=== PATIENT | female | born 1965 | race Caucasian/White ===

== ENCOUNTER 2019-12-23 04:52 | Emergency (ER) | payer BC ==
[2019-12-23] MEDS ORDERED: ONDANSETRON 4 MG/2 ML VIAL ONE (05:35)
[2019-12-23] MEDS ORDERED: MORPHINE 4 MG/ML SYR ONE (05:35)
[2019-12-23 05:42] LABS: Absolute Lymphocytes (CBC) 1.2 K/uL (0.7-4.9); Basophils % 0.6 % (0-1.3); Hematocrit 39.8 % (36.0-45.0); Lymphocytes % 15.6 % (15.3-44.8); MPV 9.7 fL (7.6-11.3); RBC Red Blood Cell Count 4.69 M/uL (3.86-4.86)
[2019-12-23 05:47] LABS: Protime INR 1.03
[2019-12-23 06:00] LABS: ALT/SGPT 22 U/L (12-78); AST/SGOT 17 U/L (15-37); Albumin 3.8 g/dL (3.4-5.0); Alkaline Phosphatase 80 U/L (45-117); BUN Blood Urea Nitrogen 15 mg/dL (7-18); Bicarbonate 27 mmol/L (21-32); Bilirubin Direct < 0.1 mg/dL (0-0.2); Bilirubin Total 0.4 mg/dL (0.2-1.0); Creatine Phosphokinase 68 U/L (26-192); Glucose Level 141 mg/dL (74-106); Lipase 73 U/L (73-393); NT PRO-BNP 80 pg/mL (<125); Potassium 4.1 mmol/L (3.5-5.1); Sodium Level 140 mmol/L (136-145); Troponin (Emerg Dept Use Only) < 0.02 ng/mL (0.0-0.045)
[2019-12-23 07:59] LABS: Urine Blood NEGATIVE (NEG); Urine Glucose NEGATIVE (NEG); Urine Protein NEGATIVE (NEG); Urine Specific Gravity 1.015 (1.005-1.030); Urine pH 7.5 (5.0-7.0)
--- NOTE | 2019-12-23 08:05 | EDPHYS ---
Physician Documentation [facility] Name: Nicole Marie Age: 54 yrs Sex: Female : 1965 Arrival Date: 12/23/2019 Time: 04:54 Bed 20 Private MD: ED Physician Kingsley Max HPI: 12/22 05:26 This 54 yrs old Female presents to ER via Ambulatory with complaints of Back mh7 Pain, Nausea/Vomiting. 05:26 The patient presents with pain that is acute, with no known mechanism of injury. The mh7 symptoms are located in the right subscapular area and right mid back. Onset: The symptoms/episode began/occurred last night, at 22:00. The pain does not radiate. Associated signs and symptoms: Pertinent positives: nausea, vomiting. 05:27 Associated signs and symptoms: Pertinent positives: Pertinent negatives: abdominal mh7 pain, chest pain, constipation, dysuria, fever, headache, hematuria, incontinence, numbness, tingling, urinary retention, weakness. The problem was sustained from unknown cause. Modifying factors: The patient symptoms are alleviated by nothing, the patient symptoms are aggravated by nothing. Severity of symptoms: At their worst the symptoms were moderate, last night, in the emergency department the symptoms are unchanged. 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 - Social history:: Smoking status: Patient denies any tobacco usage or history of. Patient uses alcohol, occasionally. Patient/guardian denies using street drugs. ROS: 05:27 Constitutional: Negative for fever, chills, and weight loss, Eyes: Negative for injury, mh7 pain, redness, and discharge, ENT: Negative for injury, pain, and discharge, Neck: Negative for injury, pain, and swelling, Cardiovascular: Negative for chest pain, palpitations, and edema, Respiratory: Negative for shortness of breath, cough, wheezing, and pleuritic chest pain, : Negative for injury, bleeding, discharge, and swelling, MS/Extremity: Negative for injury and deformity, Skin: Negative for injury, rash, and discoloration, Neuro: Negative for headache, weakness, numbness, tingling, and seizure, Psych: Negative for depression, anxiety, suicide ideation, homicidal ideation, and hallucinations, Allergy/Immunology: Negative for hives, rash, and allergies, Endocrine: Negative for neck swelling, polydipsia, polyuria, polyphagia, and marked weight changes, Hematologic/Lymphatic: Negative for swollen nodes, abnormal bleeding, and unusual bruising. Exam: 05:27 Head/Face: Normocephalic, atraumatic. Eyes: Pupils equal round and reactive to light, mh7 extra-ocular motions intact. Lids and lashes normal. Conjunctiva and sclera are non-icteric and not injected. Cornea within normal limits. Periorbital areas with no swelling, redness, or edema. Neck: Trachea midline, no thyromegaly or masses palpated, and no cervical lymphadenopathy. Supple, full range of motion without nuchal rigidity, or vertebral point tenderness. No Meningismus. Chest/axilla: Normal chest wall appearance and motion. Nontender with no deformity. No lesions are appreciated. Cardiovascular: Regular rate and rhythm with a normal S1 and S2. No gallops, murmurs, or rubs. Normal PMI, no JVD. No pulse deficits. Respiratory: Lungs have equal breath sounds bilaterally, clear to auscultation and percussion. No rales, rhonchi or wheezes noted. No increased work of breathing, no retractions or nasal flaring. Abdomen/GI: Soft, non-tender, with normal bowel sounds. No distension or tympany. No guarding or rebound. No evidence of tenderness throughout. Back: No spinal tenderness. No costovertebral tenderness. Full range of motion. Skin: Warm, dry with normal turgor. Normal color with no rashes, no lesions, and no evidence of cellulitis. MS/ Extremity: Pulses equal, no cyanosis. Neurovascular intact. Full, normal range of motion. Neuro: Awake and alert, GCS 15, oriented to person, place, time, and situation. Cranial nerves II-XII grossly intact. Motor strength 5/5 in all extremities. Sensory grossly intact. Cerebellar exam normal. Normal gait. Psych: Awake, alert, with orientation to person, place and time. Behavior, mood, and affect are within normal limits. 05:27 Constitutional: The patient appears in no acute distress, alert, awake, uncomfortable. 08:03 Abdomen/GI: Palpation: abdomen is soft and non-tender, in all quadrants, mass, is not pm1 appreciated. 08:03 Back: pain, is absent, ROM is normal, normal spinal alignment noted, CVA tenderness, is absent, vertebral tenderness, is not appreciated. Vital Signs: 05:04 BP 146 / 79; Pulse 69; Resp 16 S; Temp 97.9(O); Pulse Ox 100% on R/A; Weight 102.06 kg bb (R); Height 5 ft. 7 in. (170.18 cm) (R); Pain 10/10; 06:17 BP 143 / 82; Pulse 61; Resp 20 S; Pulse Ox 97% on R/A; Pain 3/10; bb 07:00 BP 138 / 71; Pulse 62; Resp 17; Pulse Ox 96% ; Pain 6/10; jl7 08:00 BP 143 / 86; Pulse 63; Resp 15; Pulse Ox 98% ; Pain 8/10; jl7 05:04 Body Mass Index 35.24 (102.06 kg, 170.18 cm) bb MDM: 05:16 Patient medically screened. 7 08:03 Data reviewed: vital signs. Data interpreted: Pulse oximetry: on room air is 96 %. pm1 Interpretation: normal. Counseling: I had a detailed discussion with the patient and/or guardian regarding: the historical points, exam findings, and any diagnostic results supporting the discharge/admit diagnosis, lab results, radiology results, the need for outpatient follow up, for definitive care, a general surgeon, to return to the emergency department if symptoms worsen or persist or if there are any questions or concerns that arise at home. 12:49 ED course: PMPaware reviewed. pm1 12/22 05:18 Order name: Basic Metabolic Panel; Complete Time: 06:05 [facility] 12/22 05:18 Order name: CBC with Diff; Complete Time: 06:05 [facility] 12/22 05:18 Order name: LFT's; Complete Time: 06:05 [facility] 12/22 05:18 Order name: Magnesium; Complete Time: 06:05 [facility] 12/22 05:18 Order name: NT PRO-BNP; Complete Time: 06:05 [facility] 12/22 05:18 Order name: PT-INR; Complete Time: 06:05 [facility] 12/22 05:18 Order name: Troponin (emerg Dept Use Only); Complete Time: 06:05 [facility] 12/22 05:18 Order name: XRAY Chest (1 view) [facility] 12/22 05:18 Order name: Lipase; Complete Time: 06:05 [facility] 12/22 05:25 Order name: Creatine Phosphokinase [facility] 12/22 05:45 Order name: Creatine Phosphokinase; Complete Time: 06:05 [facility] 12/22 06:07 Order name: CT Chest For PE Angio [facility] 12/22 07:18 Order name: Urine Dipstick--Ancillary (enter results); Complete Time: 08:07 12/22 05:18 Order name: EKG; Complete Time: 05:19 [facility] 12/22 05:18 Order name: Cardiac monitoring; Complete Time: 05:41 [facility] 12/22 05:18 Order name: EKG - Nurse/Tech; Complete Time: 05:40 [facility] 12/22 05:18 Order name: IV Saline Lock; Complete Time: 05:40 [facility] 12/22 05:18 Order name: Labs collected and sent; Complete Time: 05:40 [facility] 12/22 05:18 Order name: O2 Per Protocol; Complete Time: 05:40 [facility] 12/22 05:18 Order name: O2 Sat Monitoring; Complete Time: 05:40 [facility] Administered Medications: 03:00 Drug: Zofran (Ondansetron) 4 mg Route: IVP; Site: right antecubital; bb 05:54 Follow up: Response: No adverse reaction bb 05:35 Drug: morphine 4 mg Route: IVP; Site: right antecubital; bb 05:54 Follow up: Response: Pain is decreased bb 08:17 Drug: Bentyl 20 mg Route: PO; jl7 08:18 Follow up: Response: Medication administered at discharge. jl7 08:18 Drug: [place] 10 mg-325 mg 1 tabs Route: PO; jl7 08:18 Follow up: Response: Medication administered at discharge. jl7 Disposition: 12/23/19 08:04 Discharged to Home. Impression: Cholelithiasis. - Condition is Stable. - Discharge Instructions: Cholelithiasis. - Prescriptions for Bentyl 20 mg Oral Tablet - take 1 tablet by ORAL route every 6 hours As needed; 20 tablet. Tylenol- Codeine #3 300-30 mg Oral Tablet - take 2 tablets by ORAL route every 6 hours As needed; 20 tablet. Zofran 4 mg Oral Tablet - take 1 tablet by ORAL route every 8 hours As needed; 20 tablet. - Medication Reconciliation Form, Thank You Letter, Antibiotic Education, Prescription Opioid Use form. - Follow up: Emergency Department; When: As needed; Reason: Worsening of condition. Follow up: Private Physician; When: 2 - 3 days; Reason: Recheck today's complaints, Continuance of care, Re-evaluation by your physician. - Problem is new. - Symptoms have improved. Addendum: 12/28/2019 06:48 Co-signature as Attending Physician, Kingsley Max MD. [facility] Signatures: Dispatcher [employer] EDNM Ness Walden RN RN bb Ar Fletcher, INTERNATIONAL ACCOUNT REPRESENTATIVE INTERNATIONAL ACCOUNT REPRESENTATIVE pm1 Toshia Durand RN RN jl7 Kingsley Max MD MD 7 Corrections: (The following items were deleted from the chart) 12/22 05:21 05:19 Urine Test ordered. [facility] 05:45 05:25 Creatine Phosphokinase ordered. EDNM EDNM 08:19 08:04 12/23/2019 08:04 Discharged to Home. Impression: Cholelithiasis. Condition is jl7 Stable. Forms are Medication Reconciliation Form, Thank You Letter, Antibiotic Education, Prescription Opioid Use. Follow up: Emergency Department; When: As needed; Reason: Worsening of condition. Follow up: Private Physician; When: 2 - 3 days; Reason: Recheck today's complaints, Continuance of care, Re-evaluation by your physician. Problem is new. Symptoms have improved. pm1
--- NOTE | 2019-12-23 08:05 | ER ---
Nurse's Notes [facility] Name: Nicole Marie Age: 54 yrs Sex: Female : 1965 Arrival Date: 12/23/2019 Time: 04:54 Bed 20 Private MD: Diagnosis: Cholelithiasis Presentation: 12/22 05:04 Chief complaint: Patient states: she started having right sided back pain mid-back bb since yesterday evening she vomited x 2 from the pain and now also has rib pain after vomiting. Coronavirus screen: At this time, the client does not indicate any symptoms associated with coronavirus-19. Ebola Screen: No symptoms or risks identified at this time. Initial Sepsis Screen: Does the patient meet any 2 criteria? No. Patient's initial sepsis screen is negative. Does the patient have a suspected source of infection? No. Patient's initial sepsis screen is negative. Risk Assessment: Do you want to hurt yourself or someone else? Patient reports no desire to harm self or others. Onset of symptoms was December 22, 2019. 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 - Social history:: Smoking status: Patient denies any tobacco usage or history of. Patient uses alcohol, occasionally. Patient/guardian denies using street drugs. Screenin:30 Abuse screen: Denies threats or abuse. Nutritional screening: No deficits noted. bb Tuberculosis screening: No symptoms or risk factors identified. Fall Risk None identified. Assessment: 05:30 General: Appears in no apparent distress. uncomfortable, Behavior is calm, cooperative. bb Pain: Complains of pain in right mid back Pain currently is 8 out of 10 on a pain scale. Pain: Is continuous. Neuro: Level of Consciousness is awake, alert, obeys commands, Oriented to person, place, time, situation. Cardiovascular: Heart tones present Capillary refill < 3 seconds Patient's skin is warm and dry. Respiratory: Airway is patent Respiratory effort is even, unlabored, Respiratory pattern is regular, symmetrical. GI: No deficits noted. No signs and/or symptoms were reported involving the gastrointestinal system. Derm: Skin is pink, warm \\T\\ dry. Musculoskeletal: Circulation, motion, and sensation intact. Reports pain in right mid back and right subscapular area. 05:59 Reassessment: pt states pain has decreased after administration of morphine. bb 06:17 Reassessment: Patient is alert, oriented x 3, equal unlabored respirations, skin bb warm/dry/pink. pt to CT scan via stretcher with cardiac monitor technician Patient states feeling better. 06:54 Reassessment: Patient is alert, oriented x 3, equal unlabored respirations, skin bb warm/dry/pink. pt awaiting results of CT scan, no complaints at this time. 07:00 Reassessment: Pt reports decreased pain, rated 6/10 at this time. Pt's son at bedside. [facility] 07:57 Reassessment: ERP at bedside discussing results and POC. 7 Vital Signs: 05:04 BP 146 / 79; Pulse 69; Resp 16 S; Temp 97.9(O); Pulse Ox 100% on R/A; Weight 102.06 kg bb (R); Height 5 ft. 7 in. (170.18 cm) (R); Pain 10/10; 06:17 BP 143 / 82; Pulse 61; Resp 20 S; Pulse Ox 97% on R/A; Pain 3/10; bb 07:00 BP 138 / 71; Pulse 62; Resp 17; Pulse Ox 96% ; Pain 6/10; jl7 08:00 BP 143 / 86; Pulse 63; Resp 15; Pulse Ox 98% ; Pain 8/10; jl7 05:04 Body Mass Index 35.24 (102.06 kg, 170.18 cm) bb ED Course: 04:54 Patient arrived in ED. am2 05:07 Triage completed. bb 05:07 Kingsley Max MD is Attending Physician. 7 05:10 Arm band placed on Patient placed in an exam room, on a stretcher, on pulse oximetry. bb 05:29 XRAY Chest (1 view) In Process Unspecified. EDMS 05:30 Patient has correct armband on for positive identification. Bed in low position. Call bb light in reach. Side rails up X 1. web production manager on. Pulse ox on. NIBP on. pt refused blanket states she is having a "hot flash". 05:30 Initial lab(s) drawn, by me, sent to lab. Inserted saline lock: 20 gauge in right bb antecubital area, using aseptic technique. Blood collected. 05:36 EKG done, by ED staff. tt3 05:44 Ness Walden RN is Primary Nurse. bb 06:18 IV is patent, is intact, with good blood return. bb 06:41 CT Chest For PE Angio In Process Unspecified. EDMS 07:05 rA Fletcher NP is PHCP. pm1 07:59 Primary Nurse role handed off by Ness Walden RN jl7 07:59 Toshia Durand RN is Primary Nurse. jl7 08:19 No provider procedures requiring assistance completed. IV discontinued, intact, jl7 bleeding controlled, No redness/swelling at site. Pressure dressing applied. Administered Medications: 03:00 Drug: Zofran (Ondansetron) 4 mg Route: IVP; Site: right antecubital; bb 05:54 Follow up: Response: No adverse reaction bb 05:35 Drug: morphine 4 mg Route: IVP; Site: right antecubital; bb 05:54 Follow up: Response: Pain is decreased bb 08:17 Drug: Bentyl 20 mg Route: PO; jl7 08:18 Follow up: Response: Medication administered at discharge. jl7 08:18 Drug: [place] 10 mg-325 mg 1 tabs Route: PO; jl7 08:18 Follow up: Response: Medication administered at discharge. jl7 Outcome: 08:04 Discharge ordered by . pm1 08:19 Discharged to home ambulatory. jl7 08:19 Condition: stable 08:19 Discharge instructions given to patient, Instructed on discharge instructions, follow up and referral plans. medication usage, Demonstrated understanding of instructions, follow-up care, medications, Prescriptions given X 3. 08:19 Patient left the ED. jl7 Signatures: Dispatcher [employer] EDMS Ness Walden RN RN bb Ar Fletcher, MANAGER CASINO MANAGER CASINO pm1 Toshia Durand RN RN jl7 Nancy Christy 2 Kingsley Max MD MD 7 David Stephens tt3
[2019-12-23] MEDS ORDERED: HYDROCODONE/APAP 10/325 TAB ONE (08:18)
[2019-12-23] MEDS ORDERED: DICYCLOMINE HCL 10 MG CAP ONE (08:18)
[2019-12-23 08:24] VITALS: TEMP 97.9
--- NOTE | 2019-12-23 08:27 | RAD REPORT ---
EXAM DESCRIPTION: CT - Chest For Pe Angio - 12/23/2019 6:41 am CLINICAL HISTORY: Chest pain. Rib Pain - Right;PE COMPARISON: Chest For Pe Angio dated 02/09/2016 TECHNIQUE: CT angiogram of the pulmonary arteries was performed with MIP. All CT scans are performed using dose optimization technique as appropriate and may include automated exposure control or mA/KV adjustment according to patient size. FINDINGS: No evidence of pulmonary thromboembolism. No acute aortic finding demonstrated. Mild COPD. No significant pericardial or pleural fluid. No concerning bony finding. Cholelithiasis. IMPRESSION: No evidence of pulmonary thromboembolism. Mild COPD. Cholelithiasis.
[2019-12-23 08:29] VITALS: BP 143/86; O2SAT 98
--- NOTE | 2019-12-23 08:33 | RAD REPORT ---
EXAM DESCRIPTION: RAD - Chest Single View - 12/23/2019 5:29 am CLINICAL HISTORY: right upper back pain;Rib Pain - Right Chest pain. COMPARISON: Chest Single View dated 02/12/2016; Chest Single View dated 02/09/2016; Chest For Pe Shelley o dated 12/23/2019 FINDINGS: Portable technique limits examination quality. The lungs are grossly clear. The heart is normal in size. No displaced fractures. IMPRESSION: No acute intrathoracic process suspected.
== END 2019-12-23 08:19 | disposition home or self-care (01) ==
LOC: ER 04:52
DX: K80.20 Calculus of gallbladder without cholecystitis without obstruction (principal)
CPT/HCPCS: 93005; 85025; 80048; 36415; 83735; 82550; 85610; 80076; 81003; 84484; 83690; 83880; 71275; 71045; 96375; 96374; 99285; Q9967; J2405

== ENCOUNTER 2020-01-03 10:23 | Observation (INO) | payer BC ==
[2020-01-03] MEDS ORDERED: CEFOXITIN/SWI 1gm 1 GM/10 ML SYR ONE (11:00)
[2020-01-03] MEDS ORDERED: Ringers Lactate 1,000 ML IV ONE (11:00)
[2020-01-03] MEDS ORDERED: MIDAZOLAM HCL 2 MG/2 ML INJ ONE (12:34)
[2020-01-03] MEDS ORDERED: LIDOCAINE 2% MPF 5 ML VIAL ONE (12:34)
[2020-01-03] MEDS ORDERED: KETOROLAC 30 MG/ML INJ ONE (12:34)
[2020-01-03] MEDS ORDERED: FENTANYL CITR 100 MCG/2 ML ONE (12:34)
[2020-01-03] MEDS ORDERED: dexAMETHasone 10 MG/ML VIAL ONE (12:34)
[2020-01-03] MEDS ORDERED: propofoL 200 MG/20 ML VIAL IV ONE (12:34)
[2020-01-03] MEDS ORDERED: ONDANSETRON 4 MG/2 ML VIAL ONE (12:36)
[2020-01-03] MEDS ORDERED: ROCURONIUM 50 MG/5 ML VIAL IV ONE (12:39)
--- NOTE | 2020-01-03 12:53 | P.HP ---
Date of Service: 01/03/20 PC: This 54-year-old female presents for elective laparoscopic cholecystectomy and cholangiogram. HPC: Patient has been experiencing right upper quadrant abdominal pain kind radiating into her back, for the last few weeks. On workup was found have chronic cholecystitis with cholelithiasis. Pain has been intensifying born in frequency and intensity. PMH: HIV PSHx: Negative SOC: No known allergies, SYS REVIEW: No cough, wheeze, shortness of breath. No chest pain or palpitations. No urinary complaints. States she has a relatively good health, has good exercise tolerance. O/E awake alert mildly uncomfortable today vital signs stable HEENT: Non icteric Chest: Air entry equal bilateral ABD: Mild right upper quadrant tenderness LOCO: Intact DATA: Has documented cholecystitis IMPRESSION: Cholecystitis PLAN: I will take her the operating room for laparoscopic possible open cholecystectomy with cholangiogram. The risks of this procedure have been discussed. The possibility of bleeding, infection, injury to bile ducts blood vessels and intestines has been described. The possible need for an open and/or further surgeries and procedures was discussed. She understands and wants us to proceed.
[2020-01-03] MEDS ORDERED: GLYCOPYRROLATE 0.2 MG/ML SYR ONE (14:01)
[2020-01-03] MEDS ORDERED: NEOSTIGMINE 1 MG/ML -5 ML ONE (14:02)
--- NOTE | 2020-01-03 14:14 | P.OP ---
Preoperative diagnosis: Cholecystitis with cholelithiasis Postoperative diagnosis: The same Primary procedure: Laparoscopic cholecystectomy Secondary procedure: Cholangiogram Other procedure(s): Margoth block Anesthesia: General Estimated blood loss: Less than 20 cc Specimen: 1 gallbladder and contents Findings: Chronic cholecystitis with cholelithiasis Operative Technique: The patient was brought to the operating room and placed supine on the table. After the induction of adequate general endotracheal anesthesia, the area of the abdomen was prepped with a DuraPrep solution, and draped in the usual aseptic manner. A subumbilical incision was made. This was brought down through the skin and subcutaneous tissue. The Visiport was used to enter the peritoneal cavity and create a pneumoperitoneum to approximately 12 mm of mercury. Under direct vision a 5 mm trocar was placed in the upper midline, and 2 other 5 mm trocars on the right lateral side of the abdominal wall. The patients' head was then elevated and rolled towards the eight arm operator's side. We could see a chronically distended and inflamed gallbladder. There were marked manner serosal adhesions to the surface caul like covering. A grasper was placed on the fundus of the gallbladder. Another 1 was placed down by Shweta's pouch. Applying lateral traction we were able to dissect and expose the cystic duct and artery. We had obtained the critical view. The artery was dealt with 1st. It was clipped and divided in the usual manner. A clip was then placed between the gallbladder and the cystic duct. An opening was made into the cystic duct. We attempted then to pass the cholangiocath into the cystic duct. We see that there was some gritty debris in the cystic duct. This was removed with a cholangiocath. The cholangiocath passed easily down into the common bile duct. Our initial film showed good flow contrast into the duodenum. The catheter was then pulled back and a pressure injection lattice to demonstrate the upper radicals. No filling defects were noted. The catheter was now removed. Clips were now placed on the distal portion of the cystic duct. The cystic duct was then divided. The gallbladder was now dissected free from the liver bed, placed into an Endo- Catch, and brought out through the umbilical trocar site. The gallbladder fossa was inspected to ensure adequate hemostasis. It was irrigated with a saline solution and the irrigant aspirated from the peritoneal cavity. 0.25% Marcaine was aerosolized into the right upper quadrant and the gallbladder fossa. The umbilical trocar site was now approximated with an Endo Close and an absorbable sutures. The pneumoperitoneum was then collapsed, the suture tied, and edil applied to the skin. A further 0.25% Marcaine was injected around are incision sites. At the end of the procedure the patient was in a stable condition when sent to the recovery room. Needle sponge instrument count were correct. 1 specimen was sent for histopathology. Complications: None Transferred to: Recovery Room Condition: Good
[2020-01-03] MEDS ORDERED: ONDANSETRON 4 MG/2 ML VIAL IV PRN (14:21)
[2020-01-03] MEDS ORDERED: MORPHINE 4 MG/ML SYR IV PRN (14:21)
[2020-01-03] MEDS ORDERED: HYDROCODONE/APAP 7.5/325 MG TAB PO PRN (14:21)
[2020-01-03 15:15] VITALS: BMI 34.7
--- NOTE | 2020-01-03 15:22 | RAD REPORT ---
EXAM DESCRIPTION: RADCholangiogram Oper-Xray Or01/03/2020 3:03 pm CLINICAL HISTORY: Abdominal pain FINDINGS: The examination was performed by Dr. Youssef. The cystic duct was cannulated and contrast administered. Contrast flowed into the duodenum. The biliary tree is normal caliber. Seven fluoroscopic spot images obtained. Fluoroscopy time 0.3 minutes
[2020-01-03] MEDS: Ringers Lactate 1,000 ML IV SCH ×2 (15:47→22:59)
[2020-01-03] MEDS ORDERED: INFLUENZA VACCINE (for 3y+) 0.5 ML DOSE IMVAC ONE (17:00)
[2020-01-04] MEDS: Ringers Lactate 1,000 ML IV SCH (06:43)
[2020-01-04 09:27] VITALS: BP 112/56; TEMP 98.1
[2020-01-04 09:51] VITALS: O2SAT 96
[2020-01-04] MEDS ORDERED: INFLUENZA VACCINE (for 3y+) 0.5 ML DOSE IMVAC ONE (11:00)
== END 2020-01-04 10:46 | disposition home or self-care (01) ==
LOC: OR 10:23 → 2ND 14:29
PROVIDERS: ADMIT Surgery; ATTEND Surgery
PROC: BF03YZZ Plain Radiography of Gallbladder and Bile Ducts using Other Contrast (ICD-10-PCS; 2020-01-03)
PROC: 0FT44ZZ Resection of Gallbladder, Percutaneous Endoscopic Approach (ICD-10-PCS; principal; 2020-01-03 11:30)
DX: K80.10 Calculus of gallbladder with chronic cholecystitis without obstruction (principal); Z21 Asymptomatic human immunodeficiency virus [HIV] infection status; Z23 Encounter for immunization
CPT/HCPCS: 88304; 74300; 90471; 94010; 47563; J2704; Q2035; J2250; J3010; J1100; J2710; J7120 ×4; J2405; G0378 ×3

== ENCOUNTER 2020-07-05 11:57 | Emergency (ER) | payer BC ==
[2020-07-05] MEDS ORDERED: MORPHINE 4 MG/ML SYR ONE (13:00)
[2020-07-05] MEDS ORDERED: ONDANSETRON 4 MG/2 ML VIAL ONE (13:00)
--- NOTE | 2020-07-05 13:45 | RAD REPORT ---
EXAM DESCRIPTION: RAD - Wrist Right 3 View - 07/05/2020 12:49 pm CLINICAL HISTORY: DEFORMITY Pain FINDINGS: Intraarticular impacted fracture of the distal radius is seen. Mild surrounding soft tissu e swelling is evident. Ulnar styloid avulsion is present.
[2020-07-05] MEDS ORDERED: FENTANYL CITR 100 MCG/2 ML ONE (15:17)
--- NOTE | 2020-07-05 15:32 | EDPHYS ---
Physician Documentation [facility] Name: Nicole Marie Age: 54 yrs Sex: Female : 1965 Arrival Date: 07/05/2020 Time: 11:58 Bed 7 Private MD: ED Physician Kwame Felton HPI: 07/05 12:29 This 54 yrs old Female presents to ER via Wheelchair with complaints of Wrist jmm Injury, Arm Injury. 12:29 The patient or guardian reports injury, pain. Onset: The symptoms/episode jmm began/occurred acutely, just prior to arrival. Modifying factors: The symptoms are alleviated by nothing, the symptoms are aggravated by nothing. Compartment Syndrome negative for numbness, positive for pain, tingling. The patient has not experienced similar symptoms in the past. This is a 54 year old female with a history of HIV that presents to the ED with complaints of right wrist pain which developed after falling on an outstretched hand. Denies other known injury. . [employer]: 12:25 LMP 02/02/2020 jd3 Historical: - Allergies: 12:23 No Known Allergies; jd3 - Home Meds: 12:23 other antiviral [Active]; Descovy Oral [Active]; jd3 - PMHx: 12:23 HIV; jd3 - PSHx: 12:23 Cholecystectomy; wrist surgery; oral surgery; jd3 - Immunization history:: Adult Immunizations up to date. - Social history:: Smoking status: Patient denies any tobacco usage or history of. ROS: 12:29 Constitutional: Negative for fever, chills, and weight loss, Cardiovascular: Negative jmm for chest pain, palpitations, and edema, Respiratory: Negative for shortness of breath, cough, wheezing, and pleuritic chest pain. 12:29 MS/extremity: Positive for injury or acute deformity, pain. 12:29 All other systems are negative. Exam: 12:29 Constitutional: This is a well developed, well nourished patient who is awake, alert, jmm and in no acute distress. Head/Face: atraumatic. Eyes: EOMI, no conjunctival erythema appreciated ENT: Moist Mucus Membranes Neck: Trachea midline, Supple Chest/axilla: Normal chest wall appearance and motion. Cardiovascular: Regular rate and rhythm. No edema appreciated Respiratory: Normal respirations, no respiratory distress appreciated Abdomen/GI: Non distended, soft Back: Normal ROM Skin: General appearance color normal 12:29 Musculoskeletal/extremity: defromity noted ot the right wrist, full radial pulse, compartments are soft, NVI. 12:29 Skin: Appearance: Color: normal in color. 12:29 Neuro: Orientation: is normal, Mentation: is normal, Memory: is normal. 12:29 Psych: Behavior/mood is pleasant, cooperative. Vital Signs: 12:25 BP 137 / 98; Pulse 80; Resp 16 S; Temp 97.8(O); Pulse Ox 100% on R/A; Weight 99.79 kg jd3 (R); Height 5 ft. 7 in. (170.18 cm) (R); Pain 9/10; 13:00 BP 111 / 86; Pulse 88; Resp 15; Pulse Ox 100% ; Pain 8/10; jl7 12:25 Body Mass Index 34.46 (99.79 kg, 170.18 cm) jd3 Procedures: 15:31 Splinting: Splint applied to right wrist applied by myself. tech. Examined by me, post [facility] splint application: neurovascular intact, 2+ distal pulses palpable, brisk capillary refill noted, Patient tolerated well. MDM: 12:30 Patient medically screened. [facility] 15:31 Data reviewed: vital signs, nurses notes. Counseling: I had a detailed discussion with chelo the patient and/or guardian regarding: the historical points, exam findings, and any diagnostic results supporting the discharge/admit diagnosis, radiology results, the need for outpatient follow up, to return to the emergency department if symptoms worsen or persist or if there are any questions or concerns that arise at home. 07/05 12:29 Order name: XRAY Wrist RIGHT 3 view; Complete Time: 13:49 [facility] 07/05 12:31 Order name: Misc. Order: traction using 5 lb weight, finger traps; Complete Time: 13:15 [place] 07/05 12:31 Order name: Saline Lock; Complete Time: 13:15 [facility] Administered Medications: 13:00 Drug: morphine 4 mg Route: IVP; Site: left hand; jl7 13:30 Follow up: Response: No adverse reaction; Pain is decreased [facility] 13:00 Drug: Zofran (Ondansetron) 4 mg Route: IVP; Site: left hand; jl7 13:30 Follow up: Response: No adverse reaction jl7 15:15 Drug: fentaNYL (PF) 75 mcg Route: IVP; Site: left hand; jl7 15:30 Follow up: Response: No adverse reaction; Pain is decreased jl7 15:15 Drug: Zofran (Ondansetron) 4 mg Route: IVP; Site: left hand; jl7 15:30 Follow up: Response: No adverse reaction jl7 Disposition: 18:50 Co-signature as Attending Physician, Kwame Felton MD. ma2 Disposition: 07/05/20 15:32 Discharged to Home. Impression: Distal Radial Fracture. - Condition is Stable. - Discharge Instructions: Radial Fracture. - Prescriptions for Tylenol- Codeine #3 300-30 mg Oral Tablet - take 1 tablet by ORAL route every 4-6 hours As needed; 20 tablet. - Medication Reconciliation Form, Thank You Letter, Antibiotic Education, Prescription Opioid Use form. - Follow up: Oz Barragan MD; When: 2 - 3 days; Reason: Recheck today's complaints, Continuance of care, Re-evaluation by your physician. Follow up: Chico Cueto MD; When: 2 - 3 days; Reason: Recheck today's complaints, Continuance of care, Re-evaluation by your physician. Signatures: Dispatcher [employer] EDNV Toni Knott PA PA jmm Leal, Jahala, RN RN jl7 Jordon Aranda RN RN jd3 Kwame Felton MD MD ma2 Corrections: (The following items were deleted from the chart) 12:31 12:25 Wrist Left 3 View+RAD.RAD.BRZ ordered. [facility] 16:09 15:32 07/05/2020 15:32 Discharged to Home. Impression: Distal Radial Fracture. jl7 Condition is Stable. Forms are Medication Reconciliation Form, Thank You Letter, Antibiotic Education, Prescription Opioid Use. Follow up: Dr. Oz Barragan; When: 2 - 3 days; Reason: Recheck today's complaints, Continuance of care, Re-evaluation by your physician. Follow up: Chico Cueto; When: 2 - 3 days; Reason: Recheck today's complaints, Continuance of care, Re-evaluation by your physician. jmm
--- NOTE | 2020-07-05 15:32 | ER ---
Nurse's Notes [facility] Name: Nicole Marie Age: 54 yrs Sex: Female : 1965 Arrival Date: 07/05/2020 Time: 11:58 Bed 7 Private MD: Diagnosis: Distal Radial Fracture Presentation: 07/05 12:21 Chief complaint: Patient states: "I was pulling a vine out of the tree and when it came jd3 loose I fell backwards and I think I broke my right arm.". Coronavirus screen: At this time, the client does not indicate any symptoms associated with coronavirus-19. Ebola Screen: Patient negative for fever greater than or equal to 101.5 degrees Fahrenheit, and additional compatible Ebola Virus Disease symptoms. Initial Sepsis Screen: Does the patient meet any 2 criteria? No. Patient's initial sepsis screen is negative. Does the patient have a suspected source of infection? No. Patient's initial sepsis screen is negative. Risk Assessment: Do you want to hurt yourself or someone else? Patient reports no desire to harm self or others. Onset of symptoms was July 05, 2020. 12:21 Method Of Arrival: Wheelchair jd3 12:21 Acuity: MONI 3 jd3 [employer]: 12:25 LMP 02/02/2020 jd3 Historical: - Allergies: 12:23 No Known Allergies; jd3 - Home Meds: 12:23 other antiviral [Active]; Descovy Oral [Active]; jd3 - PMHx: 12:23 HIV; jd3 - PSHx: 12:23 Cholecystectomy; wrist surgery; oral surgery; jd3 - Immunization history:: Adult Immunizations up to date. - Social history:: Smoking status: Patient denies any tobacco usage or history of. Screenin:00 Abuse screen: Denies threats or abuse. Denies injuries from another. Nutritional jl7 screening: No deficits noted. Tuberculosis screening: No symptoms or risk factors identified. Fall Risk IV access (20 points). Assessment: 12:55 General: Appears in no apparent distress. uncomfortable, Behavior is calm, cooperative, jl7 appropriate for age. Pain: Complains of pain in right wrist Pain currently is 8 out of 10 on a pain scale. Neuro: Level of Consciousness is awake, alert, obeys commands, Oriented to person, place, time, situation. Cardiovascular: Patient's skin is warm and dry. Respiratory: Airway is patent Respiratory effort is even, unlabored, Respiratory pattern is regular, symmetrical. Derm: Skin is pink, warm \\T\\ dry. Musculoskeletal: Bony deformity noted of right wrist Swelling. 13:00 Reassessment: Traction placed on pt as ordered. jl7 14:00 Reassessment: Patient appears in no apparent distress at this time. No changes from jl7 previously documented assessment. Patient and/or family updated on plan of care and expected duration. Pain level reassessed. Patient is alert, oriented x 3, equal unlabored respirations, skin warm/dry/pink. Awaiting ERP to reduce fracture to right wrist. 15:15 Reassessment: Toni at bedside for right wrist manipulation. jl7 Vital Signs: 12:25 BP 137 / 98; Pulse 80; Resp 16 S; Temp 97.8(O); Pulse Ox 100% on R/A; Weight 99.79 kg jd3 (R); Height 5 ft. 7 in. (170.18 cm) (R); Pain 9/10; 13:00 BP 111 / 86; Pulse 88; Resp 15; Pulse Ox 100% ; Pain 8/10; jl7 12:25 Body Mass Index 34.46 (99.79 kg, 170.18 cm) jd3 ED Course: 11:58 Patient arrived in ED. as 12:23 Triage completed. jd3 12:26 Arm band placed on. jd3 12:27 Toni Knott PA is PHCP. [facility] 12:27 Kwame Felton MD is Attending Physician. [facility] 12:41 Toshia Durand RN is Primary Nurse. jl7 12:49 XRAY Wrist RIGHT 3 view In Process Unspecified. EDMS 13:00 Patient has correct armband on for positive identification. Bed in low position. Call jl light in reach. Side rails up X 1. Pulse ox on. NIBP on. 15:15 Assist provider with fracture care of right wrist Fracture is closed. Obvious deformity jl7 is noted. Circulation, motor and sensation is intact. Set up for procedure. Performed by Toni GOLDSTEIN Reduced with physical manipulation. Immobilized with OCL splint, Post immobilization, circulation, motor and sensation Patient tolerated well. 15:31 Orthoglass splint: Sugar tong splint applied on right arm. dh4 15:31 Sling applied to right arm. [facility] 15:32 Oz Barragan MD is Referral Physician. [facility] 15:32 Chico Cueto MD is Referral Physician. [facility] 16:00 IV discontinued, intact, bleeding controlled, No redness/swelling at site. Pressure jl7 dressing applied. Administered Medications: 13:00 Drug: morphine 4 mg Route: IVP; Site: left hand; jl7 13:30 Follow up: Response: No adverse reaction; Pain is decreased [facility] 13:00 Drug: Zofran (Ondansetron) 4 mg Route: IVP; Site: left hand; jl7 13:30 Follow up: Response: No adverse reaction [facility] 15:15 Drug: fentaNYL (PF) 75 mcg Route: IVP; Site: left hand; jl7 15:30 Follow up: Response: No adverse reaction; Pain is decreased jl 15:15 Drug: Zofran (Ondansetron) 4 mg Route: IVP; Site: left hand; jl7 15:30 Follow up: Response: No adverse reaction [facility] Outcome: 15:32 Discharge ordered by . [facility] 16:00 Discharged to home via wheelchair, with family. [facility] 16:00 Condition: stable 16:00 Discharge instructions given to patient, family, Instructed on discharge instructions, follow up and referral plans. medication usage, Demonstrated understanding of instructions, follow-up care, medications, Prescriptions given X 1. 16:09 Patient left the ED. [facility] Signatures: Dispatcher [employer] EDMS Toni Knott PA PA jmm Martinez, Amelia as Leal, Jahala, RN RN jl7 Jordon Aranda RN RN jd3 Bill Benito 4
[2020-07-05 16:13] VITALS: TEMP 97.8; O2SAT 100
[2020-07-05 16:15] VITALS: BP 111/86
== END 2020-07-05 16:09 | disposition home or self-care (01) ==
LOC: ER 11:57
PROC: 2W3CX1Z Immobilization of Right Lower Arm using Splint (ICD-10-PCS; principal; 2020-07-05)
DX: S52.501A Unspecified fracture of the lower end of right radius, initial encounter for closed fracture (principal); W19.XXXA Unspecified fall, initial encounter; Y93.9 Activity, unspecified; Y92.9 Unspecified place or not applicable; Z21 Asymptomatic human immunodeficiency virus [HIV] infection status
CPT/HCPCS: 73110; 29125; J3010; J2405; 96374; 96375; 99284